=== PATIENT | female | born 1995 | race African-American/Black ===

== ENCOUNTER 2024-02-20 00:09 | Emergency (ER) | payer SELFPAY ==
[2024-02-20 00:14] VITALS: BP 118/75; PULSE 96; RESP 20; TEMP 99; BMI 27.4
[2024-02-20] MEDS ORDERED: ACETAMINOPHEN 325 MG TABLET (FP) ONE (00:52)
[2024-02-20] MEDS: ACETAMINOPHEN 500 MG TABLET (FP) PO ONE (00:59)
== END 2024-02-20 01:44 | disposition home or self-care (01) ==
LOC: JER 00:09
DX: R05.9 Cough, unspecified (principal); J02.9 Acute pharyngitis, unspecified; R50.9 Fever, unspecified; M79.10 Myalgia, unspecified site; R51.9 Headache, unspecified; R11.0 Nausea; R53.83 Other fatigue; Z20.822 Contact with and (suspected) exposure to COVID-19
CPT/HCPCS: 0241U-QW; 87651; 99283-25